=== PATIENT | male | born 1940 | race Caucasian/White ===

== ENCOUNTER → 2017-01-27 | Outpatient (CLI) | payer OTHER, MEDICARE | LOC: FIMAGING 13:41 | PROVIDERS: ATTEND Otolaryngology | DX: D33.3 Benign neoplasm of cranial nerves (principal) ==

== ENCOUNTER → 2017-04-23 | Outpatient (CLI) | payer OTHER, MEDICARE | LOC: FIMAGING 11:26 | PROVIDERS: ATTEND Internal Medicine Hematology & Oncology | DX: N28.1 Cyst of kidney, acquired (principal); Z90.5 Acquired absence of kidney; C43.9 Malignant melanoma of skin, unspecified ==

== ENCOUNTER → 2017-05-08 | Outpatient (CLI) | payer OTHER, MEDICARE | PROVIDERS: ATTEND Otolaryngology | DX: R13.10 Dysphagia, unspecified (principal); K21.9 Gastro-esophageal reflux disease without esophagitis; Z85.820 Personal history of malignant melanoma of skin; Z85.118 Personal history of other malignant neoplasm of bronchus and lung | CPT/HCPCS: 74220; 74230; 92611; G8996; G8997; G8998; 82947-QW; G0103 ==

== ENCOUNTER 2017-11-18 16:20 | Emergency (ER) | payer MEDICARE, OTHER ==
--- NOTE | 2017-11-18 16:39 | CPEKG ---
Heart Rate: 155 RR Interval: 387 P-R Interval: 384 QRSD Interval: 74 QT Interval: 308 QTC Interval: 495 P [place]: 0 QRS [place]: -49 T Wave [place]: 72 EKG Severity - ABNORMAL ECG - EKG Impression: SUPRAVENTRICULAR TACHYCARDIA EKG Impression: LAD, CONSIDER LEFT ANTERIOR FASCICULAR BLOCK EKG Impression: ST DEPRESSION, PROBABLY RATE RELATED Electronically Signed By: Mykel Beach 18-Nov-2017 22:45:35
[2017-11-18] MEDS ORDERED: ADENOSINE 6 MG/2 ML VIAL ONE (16:42)
[2017-11-18] MEDS ORDERED: ADENOSINE 6 MG/2 ML VIAL IVP ONE (16:51)
--- NOTE | 2017-11-18 16:59 | CPEKG ---
Heart Rate: 86 RR Interval: 698 P-R Interval: 156 QRSD Interval: 86 QT Interval: 360 QTC Interval: 431 P [place]: 47 QRS [place]: -38 T Wave [place]: 77 EKG Severity - OTHERWISE NORMAL ECG - EKG Impression: SINUS RHYTHM EKG Impression: LEFT AXIS DEVIATION Electronically Signed By: Mykel Beach 18-Nov-2017 22:45:35
--- NOTE | 2017-11-18 17:28 | EDPHY ---
H & P Stated Complaint: rapid HR Time Seen by Provider: 11/18/17 16:40 HPI/ROS: Chief Complaint: Palpitations HPI: 69-year-old male with no cardiac history presenting with palpitations intermittently for the last 3 days. Patient states on Friday he noted he felt weak and his heart rate was in 150s. This lasted for about an hour and then resolved. Again yesterday he had a similar episode. Today once again he started feeling weak and had onset of palpitations. Some mild associated shortness of breath. No fevers or chills. No cough. Does not have a history of similar episodes in the past. No aggravating or alleviating factors. He drinks rare alcohol. Nonsmoker. No other recreational drug use. ROS: 10 point Review of Systems is negative except as noted in the HPI. PMH: Hypertension, asthma, GERD Social History: No smoking, rare alcohol, no recreational drug use Family History: non-contributory Physical Exam: Gen: Awake, Alert, No Distress HEENT: Nose: no rhinorrhea Eyes: PERRLA, EOMI Mouth: Moist mucosa Neck: Supple, no JVD Chest: nontender, lungs clear to auscultation Heart: Tachycardic at 1:54 a.m., regular, S1, S2 Abd: Soft, non-tender, no guarding Back: no CVA tenderness, no midline tenderness Ext: no edema, non-tender Skin: no rash Neuro: CN II-XII intact, Sensation grossly intact, Strength 5/5 in bilateral upper and lower extremities - Personal History Current Tetanus/Diphtheria Vaccine: Yes Current Tetanus Diphtheria and Acellular Pertussis (TDAP): Yes - Medical/Surgical History Hx Asthma: Yes Hx Chronic Respiratory Disease: No Hx Diabetes: No Hx Cardiac Disease: No Hx Renal Disease: Yes Hx Cirrhosis: No Hx Alcoholism: No Hx HIV/AIDS: No Hx Splenectomy or Spleen Trauma: No Other PMH: HTN, asthma, melanoma, one kidney removed, RU lobectomy, phlebitis, Esophageal dysphagia, aucoustic neuroma - Social History Smoking Status: Never smoked Constitutional: Initial Vital Signs Temperature (C) 36.5 C 11/18/17 16:25 Heart Rate 155 H 11/18/17 16:25 Respiratory Rate 16 11/18/17 16:25 Blood Pressure 151/115 H 11/18/17 16:25 O2 Sat (%) 96 11/18/17 16:25 O2 Delivery Mode Nasal Cannula O2 (L/minute) 2 Allergies/Adverse Reactions: aspirin Allergy (Verified 11/18/17 16:24) Home Medications: Medication Instructions Recorded AMITRIPTYLINE HCL 11/18/17 Flonase Nasal [place] 11/18/17 Losartan Potassium 11/18/17 Omeprazole 11/18/17 Medical Decision Making - Diagnostics EKG Interpretation: ECG 1.: Time 4:36 p.m., narrow complex tachycardia with a rate of 155 consistent with SVT. Mild ST depression in V3 through V5 which is likely rate related. ECG 2. Time, 1657. Sinus rhythm with a rate of 86. There is a left axis deviation, no acute ST or T-wave changes, normal intervals, impression, normal ECG. Procedures: Procedure: Chemical cardioversion. The patient was chemically cardioverted for SVT. The patient was on a continuous cardiac nurse specialist, with airway equipment at the bedside. The patient was on continuous pulse oximetry. The cardioversion was attempted with 6 mg of adenosine rapid IV push performed by myself. The cardioversion was successful. The patient tolerated the procedure well with no complications. The procedure was performed by myself. ED Course/Re-evaluation: 77-year-old male presenting in SVT. He is electively cardioverted but with 6 mg of adenosine by me without complication. Patient has remained in a sinus rhythm. I have reviewed his laboratory evaluations from his physician visit yesterday. - Data Points Laboratory Results: Laboratory Results 11/18/17 17:00 11/18/17 17:00 11/18/17 11/18/17 17:00 17:00 WBC 7.61 10^3/uL 10^3/uL (3.80-9.50) RBC 4.64 10^6/uL 10^6/uL (4.40-6.38) Hgb 14.8 g/dL g/dL (13.7-17.5) Hct 42.2 % % (40.0-51.0) MCV 90.9 fL fL (81.5-99.8) MCH 31.9 pg pg (27.9-34.1) MCHC 35.1 g/dL g/dL (32.4-36.7) RDW 12.5 % % (11.5-15.2) Plt Count 216 10^3/uL 10^3/uL (150-400) MPV 9.5 fL fL (8.7-11.7) Neut % (Auto) 62.0 % % (39.3-74.2) Lymph % (Auto) 23.4 % % (15.0-45.0) [place] % (Auto) 11.3 % % (4.5-13.0) Eos % (Auto) 2.2 % % (0.6-7.6) Baso % (Auto) 0.7 % % (0.3-1.7) Nucleat RBC Rel Count 0.0 % % (0.0-0.2) Absolute Neuts (auto) 4.72 10^3/uL 10^3/uL (1.70-6.50) Absolute Lymphs (auto) 1.78 10^3/uL 10^3/uL (1.00-3.00) Absolute Monos (auto) 0.86 10^3/uL H 10^3/uL (0.30-0.80) Absolute Eos (auto) 0.17 10^3/uL 10^3/uL (0.03-0.40) Absolute Basos (auto) 0.05 10^3/uL 10^3/uL (0.02-0.10) Absolute Nucleated RBC 0.00 10^3/uL 10^3/uL (0-0.01) Immature Gran % 0.4 % % (0.0-1.1) Immature Gran # 0.03 10^3/uL 10^3/uL (0.00-0.10) Sodium 143 mEq/L mEq/L (135-145) Potassium 4.3 mEq/L mEq/L (3.5-5.2) Chloride 106 mEq/L mEq/L (97-110) Carbon Dioxide 25 mEq/l mEq/l (22-31) Anion Gap 12 mEq/L mEq/L (8-16) BUN 21 mg/dL mg/dL (7-23) Creatinine 1.2 mg/dL mg/dL (0.7-1.3) Estimated GFR 59 Glucose 86 mg/dL mg/dL (70-100) Calcium 9.9 mg/dL mg/dL (8.5-10.4) Medications Given: Discontinued Medications Adenosine (Adenosine) 6 mg IVP EDNOW ONE Stop: 11/18/17 16:52 Last Admin: 11/18/17 16:52 Dose: 6 mg Departure - Departure Disposition: Home, Routine, Self-Care Clinical Impression: Supraventricular tachycardia Condition: Good Instructions: Supraventricular Tachycardia (ED) Additional Instructions: Follow up with sleeve setter safety stitch in 3-4 days for further evaluation. Return to the emergency depart for return of rapid heart rate, chest pain, shortness of breath, or any other concerns. Referrals: Marine Wilson MD [Primary Care Provider] - As per Instructions Landon Vides MD [Medical Doctor] - As per Instructions
[2017-11-18 17:54] LABS: PLATELET COUNT 216 10^3/uL (150-400)
[2017-11-18 18:23] VITALS: BP 145/98; PULSE 77; RESP 23; TEMP 97.5; O2SAT 98
== END 2017-11-18 18:26 | disposition home or self-care (01) ==
DX: I47.1 Supraventricular tachycardia (principal); I10 Essential (primary) hypertension; J45.909 Unspecified asthma, uncomplicated
CPT/HCPCS: 93005; 96374; 99284; J0153

== ENCOUNTER → 2018-02-24 | Outpatient (CLI) | payer OTHER | LOC: FIMAGING 13:38 | PROVIDERS: ATTEND Otolaryngology | DX: D33.3 Benign neoplasm of cranial nerves (principal); J32.4 Chronic pansinusitis ==

== ENCOUNTER → 2019-02-10 | Outpatient (CLI) | payer OTHER | LOC: FIMAGING 17:53 | PROVIDERS: ATTEND Internal Medicine | DX: M51.37 Other intervertebral disc degeneration, lumbosacral region (principal); M51.36 Other intervertebral disc degeneration, lumbar region; M48.061 Spinal stenosis, lumbar region without neurogenic claudication; M51.26 Other intervertebral disc displacement, lumbar region; M54.40 Lumbago with sciatica, unspecified side ==

== ENCOUNTER → 2019-02-17 | Outpatient (CLI) | payer OTHER | LOC: FIMAGING 11:25 | PROVIDERS: ATTEND Physician Assistant Surgical | DX: M51.35 Other intervertebral disc degeneration, thoracolumbar region (principal); M54.16 Radiculopathy, lumbar region; M48.07 Spinal stenosis, lumbosacral region ==